=== PATIENT | female | born 1980 | race Caucasian/White ===

== ENCOUNTER 2020-04-16 17:30 | Emergency (ER) | payer OTHER ==
[2020-04-16] MEDS ORDERED: KETOROLAC TROMETHAMINE 30 MG/1 ML VIAL IVPUSH ONE (17:52)
[2020-04-16 18:33] VITALS: BP 107/78; PULSE 109; TEMP 99; BMI 22.4
[2020-04-16] MEDS ORDERED: KETOROLAC TROMETHAMINE 30 MG/1 ML VIAL ONE (18:36)
== END 2020-04-16 19:29 | disposition home or self-care (01) ==
LOC: FER 17:30
PROC: 3E0333Z Introduction of Anti-inflammatory into Peripheral Vein, Percutaneous Approach (ICD-10-PCS; principal; 2020-04-16)
DX: S93.601A Unspecified sprain of right foot, initial encounter (principal)
CPT/HCPCS: 73630-TC-RT-FY; 96374; 99284-25